=== PATIENT | male | born 1955 | race Caucasian/White ===

== ENCOUNTER 2016-06-28 10:08 | Day surgery (SDC) | payer OTHER ==
[~2016-06-28] VITALS: Ht 165.1 cm; Wt 39.1 kg
[~2016-06-28 10:08] MED LIST: FentaNYL CITRATE-PF 100 MCG/2 ML VIAL IVP ONE; LANTUS SLIDING SCALE SQ; LISI-662 PO; METF500T4 PO; MIDAZOLAM HCL 2 MG/2 ML VIAL IVP ONE
[2016-06-28] MEDS ORDERED: CYCLOPENTOLATE HCL 2% 2 ML OPHTHALMIC SOLUTION ONE (10:17)
[2016-06-28] MEDS ORDERED: PHENYLEPHRINE HCL 2.5% 2 ML OPHTHALMIC SOLUTION ONE (10:18)
[2016-06-28] MEDS ORDERED: RINGERS SOLUTION,LACTATED 500 ML IV ONE ×2 (10:18→11:15)
[2016-06-28] MEDS ORDERED: DICLOFENAC SODIUM 0.1% 2.5 ML OPHTHALMIC SOLUTION ONE (10:18)
[2016-06-28] MEDS ORDERED: TETRACAINE HCL 0.5% 2 ML OPHTHALMIC SOLUTION ONE (10:18)
[2016-06-28] MEDS ORDERED: GATIFLOXACIN 0.5% 2.5 ML OPHTHALMIC SOLUTION ONE (10:18)
[2016-06-28] MEDS: CYCLOPENTOLATE HCL 2% 2 ML OPHTHALMIC SOLUTION OD SCH ×3 (10:59→11:13)
[2016-06-28] MEDS: PHENYLEPHRINE HCL 2.5% 2 ML OPHTHALMIC SOLUTION OD SCH ×3 (10:59→11:13)
[2016-06-28] MEDS: GATIFLOXACIN 0.5% 2.5 ML OPHTHALMIC SOLUTION OD SCH ×3 (11:00→11:21)
[2016-06-28] MEDS: DICLOFENAC SODIUM 0.1% 2.5 ML OPHTHALMIC SOLUTION OD SCH ×3 (11:00→11:21)
[2016-06-28 11:17] LABS: GLUCOSE,POINT OF CARE 241 MG/DL (70-110)
[2016-06-28] MEDS ORDERED: INSULIN ASPART 100 UNITS/ML ONE (11:42)
[2016-06-28] MEDS ORDERED: INSULIN ASPART 100 UNITS/ML IVP ONE ×2 (11:45→12:00)
[2016-06-28] MEDS ORDERED: HYALURONATE SODIUM 12 MG/ML 0.8 ML SYRINGE IO ONE (12:00)
[2016-06-28] MEDS ORDERED: HYALURONATE SOD/CHONDROITIN SOD 0.5 ML VIAL IO ONE (12:00)
[2016-06-28] MEDS ORDERED: BRIMONIDINE TARTRATE 0.15% 5 ML OPHTHALMIC SOLUTION OD ONE (12:00)
[2016-06-28] MEDS ORDERED: EPINEPHrine 1:1,000 [1 MG/ML] AMP IM ONE (12:00)
[2016-06-28] MEDS ORDERED: TETRACAINE HCL VISCOUS 0.5% 0.6 ML OPHTHALMIC SOLUTION OD ONE (12:00)
[2016-06-28] MEDS ORDERED: ACETYLCHOLINE CHLORIDE 1 EA INTRAOCULAR SOLUTION KIT IO ONE (12:00)
[2016-06-28] MEDS ORDERED: MOXIFLOXACIN HCL 0.5% 3 ML OPHTHALMIC SOLUTION OD ONE (12:00)
[2016-06-28] MEDS ORDERED: TETRACAINE HCL 0.5% 2 ML OPHTHALMIC SOLUTION OD ONE ×2 (12:00→12:45)
[2016-06-28] MEDS ORDERED: POVIDONE-IODINE 10% 15 ML SOLUTION UD TP ONE (12:00)
[2016-06-28] MEDS ORDERED: LIDOCAINE HCL/PF 1% 2 ML VIAL INJ ONE (12:00)
[2016-06-28] MEDS ORDERED: AcetaZOLAMIDE 250 MG TABLET PO ONE (12:45)
[2016-06-28] MEDS ORDERED: ACETAMINOPHEN 325 MG TABLET PO PRN (12:45)
[2016-06-28] MEDS ORDERED: AcetaZOLAMIDE 250 MG TABLET ONE (13:16)
[2016-06-28] MEDS ORDERED: ACETAMINOPHEN 325 MG TABLET ONE (13:23)
== END 2016-06-28 14:00 | disposition home or self-care (01) ==
LOC: SURGERY 10:08
PROVIDERS: ATTEND Ophthalmology
DX: E11.36 Type 2 diabetes mellitus with diabetic cataract (principal); M54.9 Dorsalgia, unspecified; Z88.0 Allergy status to penicillin; Z79.4 Long term (current) use of insulin; Z98.890 Other specified postprocedural states
CPT/HCPCS: 66984; 82962; 93005; C1780; J1815; J2250; J3010; J7120; J0171; J3490